=== PATIENT | male | born 1945 | race African-American/Black ===

== ENCOUNTER 2023-03-30 11:55 | Emergency (ER) | payer OTHER ==
[2023-03-30 14:25] LABS: #Monocytes 0.4 thou/uL (0.11-0.59); #Neutrophils 2.4 thou/uL (1.40-6.50); %Basophils 0.2 % (0.0-1.0); %Monocytes 8.9 % (0.0-10.0); %Neutrophils 58.7 % (42.0-75.0); Hematocrit 33.1 % (42.0-52.0); Hemoglobin 11.4 g/dL (14.0-18.0); Mean Corpuscular HGB CONC 34.4 g/dL (32.0-36.0); Mean Corpuscular Hemoglobin 28.6 pg (27.0-31.0); Mean Platelet Volume 8.5 fL (7.4-10.4); Platelet Count 183 10x3/uL (130-400); Red Blood Cell (RBC) Count 3.99 mill/uL (4.70-6.10); White Blood Cell (WBC) Count 4.2 10x3/uL (4.8-10.8)
[2023-03-30 14:47] LABS: ALT (SGPT) 11 U/L (8-55); AST (SGOT) 19 U/L (5-34); Albumin 3.9 g/dL (3.4-4.8); Alkaline Phosphatase 72 U/L (40-110); Anion Gap 13 mmol/L (10-20); BUN (Urea Nitrogen) 11 mg/dL (8.4-25.7); Bilirubin, Total 0.4 mg/dL (0.2-1.2); Calc. Creatinine Clearance 0 mL/min (70-130); Calcium 8.8 mg/dL (7.8-10.44); Carbon Dioxide 27 mmol/L (23-31); Chloride 103 mmol/L (98-107); Estimated GFR 73; Glucose 94 mg/dL (83-110); Potassium 3.8 mmol/L (3.5-5.1); Protein, Total 7.9 g/dL (5.8-8.1); Sodium 139 mmol/L (136-145)
[2023-03-30] MEDS ORDERED: Vancomycin 1 GM/200 ML (FROZEN) BAG ONE (14:49)
[2023-03-30] MEDS ORDERED: Cefepime 2 GM VIAL ONE (14:49)
[2023-03-30] MEDS ORDERED: Sodium Chloride 0.9% 100 ML ONE (14:50)
== END 2023-03-30 18:21 | disposition home or self-care (01) ==
LOC: ERS 11:55
DX: I82.401 Acute embolism and thrombosis of unspecified deep veins of right lower extremity (principal); I87.8 Other specified disorders of veins; I10 Essential (primary) hypertension; Z79.899 Other long term (current) drug therapy
CPT/HCPCS: 36415; 83605; 83880; 87040; 87070; 87077; 87186; 87205; 96365; J0692; J3370-JW; J3490